=== PATIENT | female | born 2005 | race Hispanic/Latino ===

== ENCOUNTER 2023-08-18 04:50 | Emergency (ER) | payer SELFPAY ==
[2023-08-18 05:45] LABS: #Eosinphils 0.2 thou/uL (0.0-0.7); #Monocytes 0.7 thou/uL (0.11-0.59); #Neutrophils 7.2 thou/uL (1.40-6.50); %Basophils 0.3 % (0.0-1.0); %Eosinophils 1.6 % (0.0-10.0); %Lymphocytes 22.3 % (28.0-48.0); %Monocytes 6.4 % (0.0-4.0); %Neutrophils 69.1 % (31.0-61.0); Hematocrit 40.7 % (36.0-47.0); Hemoglobin 14.2 g/dL (12.0-16.0); Mean Corpuscular HGB CONC 34.9 g/dL (32.0-36.0); Mean Corpuscular Hemoglobin 30.3 pg (25.0-35.0); Mean Corpuscular Volume 86.8 fl (78.0-98.0); Mean Platelet Volume 10.2 fL (7.4-10.4); Platelet Count 312 10x3/uL (130-400); RBC Distribution Width 12.5 % (11.5-14.5); Red Blood Cell (RBC) Count 4.69 mill/uL (4.00-5.20); White Blood Cell (WBC) Count 10.4 10x3/uL (4.8-10.8)
[2023-08-18 06:11] LABS: ALT (SGPT) 17 U/L (8-55); AST (SGOT) 17 U/L (5-34); Albumin 4.1 g/dL (3.5-5.0); Alkaline Phosphatase 81 U/L (40-100); Anion Gap 12 mmol/L (10-20); BUN (Urea Nitrogen) 9 mg/dL (7.0-18.7); Bilirubin, Total 0.7 mg/dL (0.2-1.2); Calc. Creatinine Clearance 0 mL/min (70-130); Calcium 9.1 mg/dL (7.8-10.44); Carbon Dioxide 21 mmol/L (22-29); Chloride 107 mmol/L (98-107); Estimated GFR 127; Globulin 2.9 g/dL (2.4-3.5); Glucose 103 mg/dL (70-105); Potassium 3.1 mmol/L (3.5-5.1); Sodium 137 mmol/L (136-145)
[2023-08-18] MEDS ORDERED: Potassium Bicarbonate/Cit Ac 20 MEQ TAB ONE (06:25)
[2023-08-18] MEDS ORDERED: Methylergonovine 0.2 MG/ML VIAL ONE (07:30)
[2023-08-18 07:44] LABS: Hematocrit 37.7 % (36.0-47.0)
[2023-08-18 08:53] LABS: Bacteria/HPF None Seen HPF (None Seen); Bilirubin Negative (Negative); Blood, Urine 3+ (Negative); CAUTI Indications for Culture Pregnancy; Glucose, Urine (Dipstick) Normal (Negative); Ketone, Urine Negative (Negative); Leukocyte 25 Leu/uL (Negative); Nitrite Negative (Negative); Protein, Urine (Dipstick) Negative (Neg-Trace); RBC/HPF Greater than 50 HPF (0-3); Specific Gravity, Urine 1.011 (1.002-1.036); Squamous Epithelial None Seen HPF (0-3); Urobilinogen Normal mg/dL (Less than 2)
[2023-08-18 09:01] LABS: Clarity Cloudy (Clear)
[2023-08-18 09:02] LABS: Pregnancy Test - Urine (BHCG) POSITIVE (Negative); Pregu Control Background? CLEAR/WHITE (CLR/WHITE); Pregu Control Bar Appear? YES (CONTROL BAR); Specific Gravity 1.011 (1.002-1.036); Urine Culture Reflex Yes Yes
[2023-08-18] MEDS ORDERED: Dexamethasone 10 MG/ML VIAL ONE (09:31)
[2023-08-18 10:31] LABS: Hematocrit 37.8 % (36.0-47.0); Hemoglobin 13.1 g/dL (12.0-16.0)
== END 2023-08-18 11:37 | disposition home or self-care (01) ==
LOC: ERS 04:50
DX: O03.9 Complete or unspecified spontaneous abortion without complication (principal); E87.6 Hypokalemia
CPT/HCPCS: 36415; 76856; 80053; 81001; 81025; 84702; 85025; 86900; 86901; 87086; 88305; 93976; 96360; 96372; J1100; J2210